=== PATIENT | female | born 1930 | race Two or more races ===

== ENCOUNTER 2018-12-16 14:35 | Inpatient (IN) | payer OTHER ==
[~2018-12-16] VITALS: Ht 162.6 cm; Wt 42.8 kg
--- NOTE | 2018-12-16 15:30 | NUR ---
Pt. BIB [facility] for weakness and poor intake, pt. is alert but does not respond to questions appropriately or follow directions, RR even and unlabored,
[2018-12-16 16:17] LABS: BASOPHILS % (AUTO) 0.3 % (0.0-2.0); HEMATOCRIT 42.6 % (31.2-41.9); HEMOGLOBIN 14.3 g/dL (10.9-14.3); LYMPHOCYTES # (AUTO) 1.2 K/uL (20.0-40.0); LYMPHOCYTES % (AUTO) 16.2 % (20.5-51.5); MEAN CORPUSCULAR HEMOGLOBIN 31.6 uug (24.7-32.8); MEAN CORPUSCULAR HGB CONC 34 g/dL (32.3-35.6); MEAN CORPUSCULAR VOLUME 94.1 fL (75.5-95.3); MONOCYTES # (AUTO) 0.4 K/uL (2.0-10.0); MONOCYTES % (AUTO) 5.7 % (0.0-11.0); NEUTROPHILS # (AUTO) 5.9 K/uL (1.8-8.9); NEUTROPHILS % (AUTO) 77.8 % (38.5-71.5); PLATELET COUNT (AUTO) 255 K/uL (179-408); RED BLOOD CELL COUNT(AUTO) 4.53 MIL/uL (3.63-4.92); WHITE BLOOD COUNT (AUTO) 7.5 K/uL (3.8-11.8)
[2018-12-16 16:26] LABS: CARBON DIOXIDE 27 mmol/L (21-32); CHLORIDE 115 mmol/L (98-107); CREATININE 1.1 mg/dL (0.6-1.3); GLUCOSE 134 mg/dL (74-106); POTASSIUM 3.4 mmol/L (3.5-5.1); UREA NITROGEN, BLOOD 35 mg/dL (7-18)
[2018-12-16 16:40] LABS: ALANINE AMINOTRANSFERASE 13 U/L (14-59); ALKALINE PHOSPHATASE 59 U/L (50-136); ASPARTATE AMINOTRANSFERASE 24 U/L (15-37); BILIRUBIN,DIRECT 0.2 mg/dL (0.0-0.2); BILIRUBIN,TOTAL 0.8 mg/dL (0.2-1.0); TOTAL PROTEIN, SERUM 7.8 g/dL (6.4-8.2)
[2018-12-16 16:43] LABS: *BILIRUBIN,URIN NEGATIVE (NEGATIVE); *BLOOD, URINE NEGATIVE (NEGATIVE); *CLARITY,URINE CLEAR (CLEAR); *COLOR,URINE YELLOW (YELLOW); *KETONES,URINE NEGATIVE (NEGATIVE); *UROBILINOGEN,URINE 0.2 E.U./dl (NORMAL); LEUKOCYTE ESTERASE ,URINE NEGATIVE (NEGATIVE); NITRITE, URINE NEGATIVE (NEGATIVE); PH,URINE 5.5 (5.0-8.0); UGLUCOSE NEGATIVE (NEGATIVE)
[2018-12-16] MEDS ORDERED: IV D5W 1000ML 1,000 ML IV ONE (16:45)
[2018-12-16 16:59] LABS: BACTERIA,URINE NONE SEEN /HPF (NONE SEEN); RBC,URINE 0-3 /HPF (0-3); SQUAMOUS EPITHELIAL CELL,UR FEW /HPF (NONE SEEN); WBC,URINE 0-3 /HPF (0-3)
--- NOTE | 2018-12-16 17:11 | NUR ---
Pt. back from CT,
[2018-12-16] MEDS ORDERED: ACET325T53 PO (17:13)
[2018-12-16] MEDS ORDERED: FURO-152 PO (17:13)
[2018-12-16] MEDS ORDERED: ATOR20TA PO (17:13)
[2018-12-16] MEDS ORDERED: ACET650S13 RC (17:13)
[2018-12-16] MEDS ORDERED: CARB1TAB19 PO (17:13)
[2018-12-16] MEDS ORDERED: ASPI81TA31 PO (17:13)
--- NOTE | 2018-12-16 17:33 | NUR ---
Called [facility] for Panel call, awaiting callback from [facility],
[2018-12-16] MEDS ORDERED: IV D5 1/2 NS 1000 ML 1,000 ML IV PRN (17:49)
[2018-12-16] MEDS ORDERED: PIPERACILLIN SODIUM/TAZOBACTAM 3.375 G in IV DEXTROSE 5% 50 ML IV ONE (18:00)
[2018-12-16] MEDS ORDERED: MAGNESIUM HYDROXIDE 30 ML LIQUID UDC PO PRN (18:00)
[2018-12-16] MEDS ORDERED: Z GUARD REMEDY PASTE 57 GM TUBE TOP PRN (18:00)
[2018-12-16] MEDS ORDERED: ACETAMINOPHEN 650 MG SUPP.RECT RC PRN (18:00)
[2018-12-16] MEDS ORDERED: ACETAMINOPHEN 325 MG TABLET PO PRN ×2 (18:00)
[2018-12-16] MEDS ORDERED: ACETAMINOPHEN 650 MG SUPP.RECT RC ONE ×2 (18:00→18:05)
[2018-12-16] MEDS ORDERED: ONDANSETRON 4 MG/2 ML VIAL IV PRN (18:00)
[2018-12-16] MEDS ORDERED: PIPERACILLIN/TAZOBACTAM/D5W 50 ML IV ONE ×2 (18:05→21:23)
--- NOTE | 2018-12-16 18:05 | NUR ---
Report given to Ivon SCHUMACHER
--- NOTE | 2018-12-16 18:51 | NUR ---
Gave report to Enrique SCHUMACHER,
--- NOTE | 2018-12-16 19:35 | NUR ---
Patient transfered via gurney to TELE; in stable condition
--- NOTE | 2018-12-16 19:50 | NUR ---
RECEIVED PT FROM ER VIA ELIUD. DX; FEVER OF UNKNOWN ORIGIN. PT SHOWS NO SIGNS OF ACUTE DISTRESS. BELONGING LIST DONE. ADMISSION PROCESS AND CARE PLAN INITIATED. PHOTO TAKEN OF HER SACRUM AND LEFT INNER LEG. PHOTO INSIDE THE CHART. CALL LIGHT WITHIN REACH. SAFETY AND COMFORT PROVIDED. WILL CONTINUE TO MONITOR.
[2018-12-16 20:26] VITALS: BP 128/73
[2018-12-16] MEDS: ATORVASTATIN 20 MG TABLET PO SCH (21:48)
[2018-12-16] MEDS ORDERED: PIPERACILLIN SODIUM/TAZOBACTAM 3.375 G in IV DEXTROSE 5% 50 ML IV SCH (22:00)
[2018-12-16] MEDS: ENOXAPARIN SODIUM 30 MG/0.3 ML DISP.SYRIN SUBCUT SCH (22:18)
[2018-12-17 00:28] VITALS: BP 140/74
[2018-12-17] MEDS ORDERED: PIPERACILLIN/TAZOBACTAM/D5W 2.25 G in PREMIXED 1 EACH IV ONE (02:00)
[2018-12-17 05:01] VITALS: BP 149/82
--- NOTE | 2018-12-17 06:42 | NUR ---
PT SLEPT THROUGHOUT THE SHIFT. PT SHOWS NO SIGNS OF ACUTE DISTRESS. IV INTACT. PRESCRIBED MEDICATION GIVEN AND PT TOLERATED IT WELL. KAREN LUI NP ORDERED TO FINISH THE D5W ORDERED IN ER BEFORE GIVING THE D5W WITH 1/2 NS. CHARGE NURSE AWARE. SAFETY AND COMFORT PROVIDED. WILL ENDORSE TO INCOMING NURSE FOR CONTINUITY OF CARE.
[2018-12-17 07:18] LABS: BASOPHILS % (AUTO) 0.2 % (0.0-2.0); EOSINOPHILS % (AUTO) 0.1 % (0.0-7.0); HEMATOCRIT 42.2 % (31.2-41.9); HEMOGLOBIN 14.3 g/dL (10.9-14.3); LYMPHOCYTES # (AUTO) 1.2 K/uL (20.0-40.0); LYMPHOCYTES % (AUTO) 14.6 % (20.5-51.5); MEAN CORPUSCULAR HEMOGLOBIN 31.6 uug (24.7-32.8); MEAN CORPUSCULAR HGB CONC 34 g/dL (32.3-35.6); MEAN CORPUSCULAR VOLUME 93.3 fL (75.5-95.3); MONOCYTES # (AUTO) 0.3 K/uL (2.0-10.0); MONOCYTES % (AUTO) 4.2 % (0.0-11.0); NEUTROPHILS # (AUTO) 6.4 K/uL (1.8-8.9); NEUTROPHILS % (AUTO) 80.9 % (38.5-71.5); PLATELET COUNT (AUTO) 232 K/uL (179-408); RED BLOOD CELL COUNT(AUTO) 4.52 MIL/uL (3.63-4.92); WHITE BLOOD COUNT (AUTO) 7.9 K/uL (3.8-11.8)
[2018-12-17 07:36] LABS: CARBON DIOXIDE 28 mmol/L (21-32); CHLORIDE 112 mmol/L (98-107); CHOLESTEROL 140 mg/dL (<200); GLUCOSE 135 mg/dL (74-106); HDL CHOLESTEROL 37 mg/dL (40-60); MAGNESIUM 2.7 mg/dL (1.8-2.4); PHOSPHOROUS 3.5 mg/dL (2.5-4.9); POTASSIUM 3.1 mmol/L (3.5-5.1); TRIGLYCERIDES 86 MG/DL (30-150); UREA NITROGEN, BLOOD 31 mg/dL (7-18)
[2018-12-17 07:46] LABS: THYROID STIMULATING HORMONE 2.472 mIU/mL (0.358-3.740)
[2018-12-17] MEDS: FUROSEMIDE 20 MG TABLET PO SCH (09:00)
[2018-12-17] MEDS: ASPIRIN 81 MG TAB.CHEW PO SCH (09:00)
[2018-12-17] MEDS: CARBIDOPA/LEVODOPA 10-100MG TABLET PO SCH ×3 (09:00→17:00)
[2018-12-17] MEDS ORDERED: DEXTROSE 50% 50 ML DISP.SYRIN IV PRN (09:30)
[2018-12-17] MEDS ORDERED: INSULIN REGULAR, HUMAN 300 UNIT/3 ML VIAL SQ PRN (09:30)
[2018-12-17] MEDS: PANTOPRAZOLE SODIUM 40 MG VIAL IV SCH (10:19)
[2018-12-17] MEDS: PIPERACILLIN/TAZOBACTAM/D5W 3.375 G in PREMIXED 1 EACH IV SCH ×2 (10:25→20:03)
[2018-12-17] MEDS: POTASSIUM CHLORIDE 50 ML IV SCH ×4 (11:04→15:27)
[2018-12-17 11:12] VITALS: BP 105/63
[2018-12-17] MEDS: BLOOD SUGAR DIAGNOSTIC 1 EACH STRIP VI SCH ×3 (11:44→20:19)
[2018-12-17 15:01] VITALS: BP 143/83
[2018-12-17] MEDS: IV D5W 1000ML 1,000 ML IV PRN (16:47)
--- NOTE | 2018-12-17 19:20 | NUR ---
RECEIVED PT ON BED. PT SHOWS NO ACUTE DISTRESS. IV INTACT. SAFETY AND COMFORT PROVIDED. WILL CONTINUE TO MONITOR.
[2018-12-17 20:00] VITALS: BP 125/77
[2018-12-17] MEDS: ENOXAPARIN SODIUM 30 MG/0.3 ML DISP.SYRIN SUBCUT SCH (20:19)
[2018-12-17] MEDS: ATORVASTATIN 20 MG TABLET PO SCH (20:20)
[2018-12-18 00:10] VITALS: BP 139/61
[2018-12-18 04:00] VITALS: BP 145/61
--- NOTE | 2018-12-18 05:45 | NUR ---
PT SLEPT THROUGHOUT THE SHIFT. PT SHOWS NO SIGNS OF ACUTE DISTRESS. PRESCRIBED MEDICATION GIVEN AND PT TOLERATED IT WELL. PT SPEAKING BUT GARBLED SPEECH. SAFETY AND COMFORT PROVIDED.ALL NEEDS ARE MET. PT TURNED AND REPOSITIONED. WILL ENDORSE ACCORDINGLY TO INCOMING NURSE FOR CONTINUITY OF CARE.
[2018-12-18 06:49] LABS: BASOPHILS % (AUTO) 0.1 % (0.0-2.0); EOSINOPHILS % (AUTO) 0.4 % (0.0-7.0); HEMATOCRIT 38.6 % (31.2-41.9); HEMOGLOBIN 13.2 g/dL (10.9-14.3); MEAN CORPUSCULAR HEMOGLOBIN 31.7 uug (24.7-32.8); MEAN CORPUSCULAR HGB CONC 34 g/dL (32.3-35.6); MEAN CORPUSCULAR VOLUME 92.6 fL (75.5-95.3); MONOCYTES # (AUTO) 0.3 K/uL (2.0-10.0); MONOCYTES % (AUTO) 4.3 % (0.0-11.0); NEUTROPHILS # (AUTO) 5.4 K/uL (1.8-8.9); NEUTROPHILS % (AUTO) 80.2 % (38.5-71.5); PLATELET COUNT (AUTO) 223 K/uL (179-408); RED BLOOD CELL COUNT(AUTO) 4.17 MIL/uL (3.63-4.92); WHITE BLOOD COUNT (AUTO) 6.7 K/uL (3.8-11.8)
[2018-12-18] MEDS: BLOOD SUGAR DIAGNOSTIC 1 EACH STRIP VI SCH (06:49)
[2018-12-18 07:13] LABS: CARBON DIOXIDE 26 mmol/L (21-32); CHLORIDE 110 mmol/L (98-107); CREATININE 0.9 mg/dL (0.6-1.3); GLUCOSE 145 mg/dL (74-106); MAGNESIUM 2.5 mg/dL (1.8-2.4); PHOSPHOROUS 2.6 mg/dL (2.5-4.9); POTASSIUM 3.3 mmol/L (3.5-5.1); UREA NITROGEN, BLOOD 23 mg/dL (7-18)
[2018-12-18 08:04] VITALS: BP 132/69
[2018-12-18] MEDS: PANTOPRAZOLE SODIUM 40 MG VIAL IV SCH (08:27)
[2018-12-18] MEDS: ASPIRIN 81 MG TAB.CHEW PO SCH (08:27)
[2018-12-18] MEDS: PIPERACILLIN/TAZOBACTAM/D5W 3.375 G in PREMIXED 1 EACH IV SCH (08:27)
[2018-12-18] MEDS: CARBIDOPA/LEVODOPA 10-100MG TABLET PO SCH ×3 (08:27→16:20)
[2018-12-18] MEDS: FUROSEMIDE 20 MG TABLET PO SCH (08:27)
[2018-12-18] MEDS: POTASSIUM CHLORIDE 50 ML IV SCH ×2 (10:19→10:55)
[2018-12-18 11:44] VITALS: BP 148/76
--- NOTE | 2018-12-18 13:56 | NUR ---
WOUND CARE CONSULT: PT PRESENTS WITH SACRAL DEEP TISSUE INJURY IN EVOLUTION WHICH EXTENDS TO BILATERAL BUTTOCKS, PRESENT ON ADMISSION. RECOMMENDATIONS MADE FOR SKIN PROTECTION AND WOUND CARE. DISCUSSED WITH NURSING STAFF. WILL SEE PRN. [facility] IN AGREEMENT WITH PLAN OF CARE. Addendum: 12/18/18 at 1358 by ESTHER CUNNINGHAM RN Amended: Links added.
--- NOTE | 2018-12-18 14:50 | NUR ---
I&O catheter performed urine collected and sent for UA &UCx as ordered.
[2018-12-18 15:30] VITALS: BP 141/79
[2018-12-18 16:21] LABS: *BILIRUBIN,URIN NEGATIVE (NEGATIVE); *CLARITY,URINE SLIGHTLY CLOUDY (CLEAR); *COLOR,URINE YELLOW (YELLOW); *KETONES,URINE NEGATIVE (NEGATIVE); LEUKOCYTE ESTERASE ,URINE NEGATIVE (NEGATIVE); NITRITE, URINE NEGATIVE (NEGATIVE); UGLUCOSE NEGATIVE (NEGATIVE)
[2018-12-18 16:22] LABS: *BLOOD, URINE TRACE (NEGATIVE)
[2018-12-18] MEDS ORDERED: IV DEXTROSE 5% 500 ML IV ONE (16:30)
[2018-12-18 16:53] LABS: BACTERIA,URINE FEW /HPF (NONE SEEN); RBC,URINE 0-3 /HPF (0-3); SQUAMOUS EPITHELIAL CELL,UR MODERATE /HPF (NONE SEEN); WBC,URINE 0-3 /HPF (0-3)
[2018-12-18] MEDS ORDERED: PIPERACILLIN/TAZOBACTAM/D5W 3.375 G in PREMIXED 1 EACH IV SCH (17:00)
[2018-12-18] MEDS: IV D5W 1000ML 1,000 ML IV PRN (17:14)
--- NOTE | 2018-12-18 18:13 | NUR ---
Notified elizabeth Green grand daughter [phone] of pt going back to [facility] tonight. Granddaughter ok with d/c back to [facility].
--- NOTE | 2018-12-18 18:59 | NUR ---
A call to [facility] at and telephone report given to Soledad Moore. all questions answer and she was also informed of estimated time of forklift picker been 2100 today 12/18/18.
--- NOTE | 2018-12-18 19:01 | NUR ---
Report will be given to incoming rn.
[2018-12-18 19:12] VITALS: BP 90/55
[2018-12-18] MEDS: ENOXAPARIN SODIUM 30 MG/0.3 ML DISP.SYRIN SUBCUT SCH (20:53)
--- NOTE | 2018-12-18 22:15 | NUR ---
Patient picked up by ambulance via gurney. No signs of acute distress. No SOB
[2018-12-19] MEDS ORDERED: PANTOPRAZOLE SODIUM 40 MG TABLET.DR PO SCH (07:00)
== END 2018-12-18 22:40 | DRG 640 ==
LOC: ER 14:35 → TELE3 19:26 → MEDSURG3 12-18 08:38
PROVIDERS: ADMIT Registered Nurse; ATTEND Registered Nurse
DX: E86.0 Dehydration (principal); G92 Toxic encephalopathy; I21.A1 Myocardial infarction type 2; J98.11 Atelectasis; M62.82 Rhabdomyolysis; N39.0 Urinary tract infection, site not specified; E87.0 Hyperosmolality and hypernatremia; R50.9 Fever, unspecified; G20 Parkinson's disease; F02.80 Dementia in other diseases classified elsewhere, unspecified severity, without behavioral disturbance, psychotic disturbance, mood disturbance, and anxiety; E78.5 Hyperlipidemia, unspecified; I25.2 Old myocardial infarction; Z87.440 Personal history of urinary (tract) infections; Z79.899 Other long term (current) drug therapy; Z79.82 Long term (current) use of aspirin; I25.10 Atherosclerotic heart disease of native coronary artery without angina pectoris; M62.81 Muscle weakness (generalized); I50.9 Heart failure, unspecified
CPT/HCPCS: 36415; 70030-TC; 70450; 71045; 83605; 83735; 84100; 84443; 85025; 85730; 87040; 87086; 87400; 93005; A4663; C1758; C9113; G0378; J1650; J1815; J2543; J3480; J3490; J7060